=== PATIENT | female | born 1980 | race Two or more races ===

== ENCOUNTER → 2017-06-30 09:36 | Outpatient (CLI) | payer BC, SELFPAY ==
[2017-06-30 11:28] LABS: Glucose Challenge Gest 1H 50g 77 mg/dL (70-140)
[2017-06-30 11:30] LABS: Hematocrit 37.5 % (37-47); Hemoglobin 12.1 g/dl (12.0-15.0); Mean Corp Hgb Conc 32.3 g/gl (32-36); Mean Corpuscular Hgb 29.1 pg (27.0-32.0); Mean Corpuscular Volume 90.1 fL (81-99); Mean Platelet Vol. 11.4 fl (6.2-12.0); Platelet Count 225 K/mm3 (150-450); RBC Distribution Width CV 13.5 % (11.6-14.6); RBC Distribution Width SD 44.1 fl (35.1-43.9); Red Blood Count 4.16 M/mm3 (4.2-5.4); White Blood Count 10.4 K/mm3 (4.4-11.0)
[2017-06-30 11:35] LABS: Scan Indicated on CBC? Y/N NO
== END ==
PROVIDERS: Visit Provider Obstetrics & Gynecology
DX: Z34.82 Encounter for supervision of other normal pregnancy, second trimester (principal)
CPT/HCPCS: 36415; 82950; 85027

== ENCOUNTER → 2017-08-25 15:44 | Outpatient (CLI) | payer BC, SELFPAY ==
[2017-08-25 18:29] LABS: Group B Strep DNA By PCR Negative (Negative); Internal Control PASS; Probe Check PASS; Specimen Processing Control PASS
== END ==
PROVIDERS: Visit Provider Obstetrics & Gynecology
DX: Z36.85 Encounter for antenatal screening for Streptococcus B (principal)
CPT/HCPCS: 87081; 87653

== ENCOUNTER 2017-10-04 00:50 | Inpatient (IN) | payer BC, SELFPAY ==
[2017-10-04] VITALS (12 sets, daily range): BP systolic 116–168; BP diastolic 71–104; PULSE 75–94; RESP 16–20; TEMP 36.4–36.8; O2SAT 96–100; BMI 27.8
[2017-10-04] MEDS: Lactated Ringers 1,000 ML 50 ML IV (01:25)
[2017-10-04 01:47] LABS: Hematocrit 42.9 % (37-47); Mean Corpuscular Hgb 30.4 pg (27.0-32.0); Mean Corpuscular Volume 86.8 fL (81-99); Mean Platelet Vol. 12.2 fl (6.2-12.0); Platelet Count 205 K/mm3 (150-450); RBC Distribution Width CV 13.4 % (11.6-14.6); RBC Distribution Width SD 41.4 fl (35.1-43.9); Red Blood Count 4.94 M/mm3 (4.2-5.4); White Blood Count 17.3 K/mm3 (4.4-11.0)
[2017-10-04 01:51] LABS: Scan Indicated on CBC? Y/N NO
[2017-10-04 01:56] LABS: International Normalized Ratio 0.9; Prothrombin Time (Protime)PT. 11.9 SECONDS (11.7-14.9)
[2017-10-04 01:57] LABS: Partial Thromboplast Time 28.8 Seconds (24.1-36.2)
[2017-10-04 02:02] LABS: AST(SGOT) 29 U/L (15-37); Alanine Aminotransfer ALT/SGPT 40 U/L (13-56); Creatinine, Serum 0.74 mg/dL (0.55-1.02); EST Glomerular Filtration Rate 95 mL/min (>60); Est Glom Filt Rate - Afr Amer 115 mL/min (>60); Estimated Creatinine Clearance 84.72 ml/min; Uric Acid 3.9 mg/dL (2.6-6.0)
[2017-10-04] MEDS: Magnesium Sulfate 20 GM/500 ML BAG IV ×2 (02:44→13:06)
[2017-10-04 03:26] LABS: Protein, Urine (Random) 27.5 mg/dL (<11.9); Protein:Creat Ratio 367 mg/g CRE (0-200)
[2017-10-04] MEDS: Labetalol 100 MG Tablet PO ×2 (05:02→22:02)
[2017-10-04] MEDS: Oxytocin 30 units/NS 500 ml 30 UNITS/500 ML IV.SOLN IV (06:22)
[2017-10-04] MEDS: Acetaminophen 325 MG Tablet PO (07:06)
--- NOTE | 2017-10-04 08:37 | PCM.PN.OB ---
Subjective: USing nitrous oxide for pain. Feeling contractions strongly. Objective: BP 140/88 FHR tracing cat 1. - Physical Exam General: Alert, Oriented x3, Cooperative, No apparent distress Abdomen: Gravid, Appropriate for Gestational Age Extremities: No edema Skin: No rashes Neurological: Neuro grossly intact Psych/Mental Status: Normal Affect Comment: CE 7-8 90% -2 AROM performed with clear fluid noted Vital Signs Temp Pulse Resp BP Pulse Ox 98.3 F 82 18 168/93 H 99 10/04/17 03:51 10/04/17 03:51 10/04/17 03:51 10/04/17 03:51 10/04/17 03:51 Oxygen Delivery Method Room Air Weight: 152 lb 5.431 oz Body Mass Index (BMI) 27.8 Intake and Output for Last 24 Hours 10/02/17 10/03/17 10/04/17 23:59 23:59 23:59 Intake Total 879 / 879 Output Total 1600 / 1600 Balance -721 / -721 Laboratory Tests Past 24 Hrs 10/04/17 10/04/17 10/04/17 01:25 01:25 01:25 WBC 17.3 H RBC 4.94 Hgb 15.0 Hct 42.9 MCV 86.8 MCH 30.4 MCHC 35.0 RDW 13.4 RDW Differential 41.4 Plt Count 205 MPV 12.2 H PT 11.9 INR 0.9 APTT 28.8 Creatinine Estim Creat Clear Calc Est GFR (MDRD) Af Amer Est GFR (MDRD) Non-Af Uric Acid AST ALT U Random Total Protein Urine Creatinine Protein/Creatinin Ratio Blood Type A POSITIVE Antibody Screen NEGATIVE 10/04/17 10/04/17 01:25 03:00 WBC RBC Hgb Hct MCV MCH MCHC RDW RDW Differential Plt Count MPV PT INR APTT Creatinine 0.74 Estim Creat Clear Calc 84.72 Est GFR (MDRD) Af Amer 115 Est GFR (MDRD) Non-Af 95 Uric Acid 3.9 AST 29 ALT 40 U Random Total Protein 27.5 H Urine Creatinine 74.90 Protein/Creatinin Ratio 367 H Blood Type Antibody Screen Medical Necessity - Tobacco Use Smoking Status: Never smoker Assessment/Plan Progressing in labor Continue magnesium sulfate prophylaxis. Labetalol if needed for BP.
[2017-10-04] MEDS: Oxytocin 30 units/NS 500 ml 30 UNITS/500 ML IV.SOLN 334 UNITS IV (11:24)
--- NOTE | 2017-10-04 11:46 | PCM.OB.VAG ---
Vaginal Delivery Maternal Presentation: Active Labor Presented in active labor with elevated BPs Amniotic Membrane Rupture Type: Artificial Rupture of Membrane time: 08 Amniotic Fluid Description: Clear Final ELIE: 09/26/17 Final ELIE Source: US <20 weeks Gestational age: 41 Weeks and 1 Days Date of Procedure: 10/04/17 Pre-Operative Diagnosis: labor with preeclampsia Post-Operative Diagnosis: same Surgery/ Procedure Performed: Spontaneous Vaginal Delivery Type of Anesthesia: None Description of Procedure: Presented in active labor at 6-7 cm. BPs elevated started on magnesium sulfate prophylaxis. Progressed to FD then pushed for about an hour to deliver a live female over a second degree midline episiotomy. Delayed cord clamping was employed. The placenta delivered intact with a centrally located 3VC. The uterus contracted well. The second degree laceration was repaired with 2-0 vicryl with local anesthetic given. Presentation: Vertex Placental Delivery Description: Spontaneous Placenta Disposition: [facility] Percentage of Placenta Abruption: 0 Cord Vessel Description: 3 Vessels Nuchal Cord Compression: Without compression Cord Entanglement: None Estimated Blood Loss: 200cc Infant A gender: Female (1 minute): 9 (5 minute): 9 Episiotomy Description: Midline, Perineal Extension/lac, Vaginal Extension/lac, 2nd degree Medications given after delivery: IV Pitocin Complications: None
--- NOTE | 2017-10-04 11:53 | DCINST_ITS ---
Discharge Diet: No Restrictions Discharge Activity: Return to Normal Activity, May Drive, May Shower Return to work on:: 12/04/17 May resume sexual activity in: 6 weeks Call your doctor if your incision/area has: Sudden Increased Bleeding, Increased Pain/ Swelling, Increased Redness, Foul Smelling Discharge Call your doctor if you observe: Fever of 101 or Higher, Inability to urinate, Inability to have a bowel movement, Using more than one pad per hour, Shortness of breath, Chest pain, Calf discomfort, Uncontrolled pain Cleanse incision/area with: Soap & Water Additional Instructions: If you experience any of the following, contact your healthcare provider. * Bleeding that soaks a pad every hour for 2 hours * Fever 100.4 or higher * Unrelieved incision or abdominal pain * Swelling, redness, discharge or bleeding from your incision or episiotomy site * Your incision begins to separate * Problems urinating (including inability to urinate or burning while urinating) . * Visual changes * Severe headache * Flu-like symptoms * Pain or redness in one of both of your breasts * Pain, warmth, tenderness or swelling in your legs, especially the calf area * Frequent nausea and vomiting * Symptoms of depression or anxiety If you experience any of the following, call 911 or go to the nearest Emergency Room. * Chest pain * Problems breathing * Seizure activity * Partial or complete paralysis of a body part, slurred speech, weakness or drooping of the face, or a sudden inability to walk or hold your balance Allergies/Adverse Reactions: Allergies amoxicillin Adverse Reaction (Verified 10/04/17 01:59) Vomiting Medications to take at Discharge Ibuprofen 600 mg PO 4X/DAY #30 tab 10/04/17 Vits [Prenatabs FA ] 1 tablet PO DAILY 10/04/17 The following prescriptions were given: Ibuprofen 600 mg PO 4X/DAY #30 tab Please Follow Up With: Iesha Vergara MD When: 6 weeks Primary Care Physician: Care Physician,No Primary [Primary Care Provider] - Test Results: Test results from this visit will be discussed in further detail at your follow- up appointment, if applicable. Proposed Discharge Date: 10/06/17
[2017-10-04] MEDS: Oxytocin 30 units/NS 500 ml 30 UNITS/500 ML IV.SOLN 167 UNITS IV (11:56)
[2017-10-04] MEDS: Ibuprofen 600 MG Tablet PO ×2 (12:07→18:08)
[2017-10-04] MEDS: Methylergonovine 0.2 MG/ML Ampul IM (12:29)
[2017-10-04] MEDS: Lactated Ringers 1,000 ML 15 ML IV (13:03)
[2017-10-04] MEDS: Ondansetron 4 MG/2 ML Vial IV (13:17)
[2017-10-04] MEDS: Acetaminophen 500 MG Tablet 1000 MG PO (14:58)
[2017-10-05] VITALS (14 sets, daily range): BP systolic 104–126; BP diastolic 57–80; PULSE 70–87; RESP 16–18; TEMP 35.7–36.8; O2SAT 96–100
[2017-10-05] MEDS: Ibuprofen 600 MG Tablet PO ×4 (00:03→22:15)
[2017-10-05] MEDS: Magnesium Sulfate 20 GM/500 ML BAG IV (00:04)
[2017-10-05 06:33] LABS: Hematocrit 36.7 % (37-47); Hemoglobin 12.3 g/dl (12.0-15.0); Mean Corp Hgb Conc 33.5 g/gl (32-36); Mean Corpuscular Hgb 29.8 pg (27.0-32.0); Mean Corpuscular Volume 88.9 fL (81-99); Mean Platelet Vol. 12.1 fl (6.2-12.0); Platelet Count 215 K/mm3 (150-450); RBC Distribution Width CV 13.5 % (11.6-14.6); RBC Distribution Width SD 43.1 fl (35.1-43.9); Red Blood Count 4.13 M/mm3 (4.2-5.4); White Blood Count 17.3 K/mm3 (4.4-11.0)
[2017-10-05 06:37] LABS: Scan Indicated on CBC? Y/N NO
[2017-10-05] MEDS: 0.9% Saline Lock 10 ML Syringe IV (09:20)
[2017-10-05] MEDS: Labetalol 100 MG Tablet PO ×2 (10:21→22:16)
[2017-10-06 02:43] VITALS: BP 116/69; PULSE 75; RESP 17; TEMP 36.3
[2017-10-06 08:00] VITALS: BP 131/62; PULSE 61; RESP 16; TEMP 36.6
[2017-10-06] MEDS: Ibuprofen 600 MG Tablet PO (08:03)
--- NOTE | 2017-10-06 08:31 | PCM.PN.OB ---
Subjective: No issues overnight. Denies headache, vision changes, shortness of breath, heavy lochia. She feels well. Objective: AVSS - Physical Exam General: Alert, Oriented x3, Cooperative, No apparent distress HEENT: Atraumatic Lungs: Clear to auscultation, Normal air movement Cardiovascular: Regular rate, Regular Rhythm, Normal S1, Normal S2, No murmurs Abdomen: Soft, Non Tender, Non-Distended, - - Fundus firm and nontender Extremities: No edema, No Calf Tenderness Neurological: Neuro grossly intact Psych/Mental Status: Normal Affect, Appropriate, Alert and oriented to time, place, person, mood and affect Vital Signs Temp Pulse Resp BP Pulse Ox 97.8 F 61 16 131/62 H 100 10/06/17 08:00 10/06/17 08:00 10/06/17 08:00 10/06/17 08:00 10/05/17 10:20 Oxygen Delivery Method Room Air Weight: 69.1 kg Body Mass Index (BMI) 27.8 Intake and Output for Last 24 Hours 10/04/17 10/05/17 10/06/17 23:59 23:59 23:59 Intake Total 2575 / 2575 1787 / 1787 Output Total 3800 / 3800 2412 / 2412 Balance -1225 / -1225 -625 / -625 Medical Necessity - Tobacco Use Smoking Status: Never smoker Assessment/Plan 36yo P1001 PPD#2 s/p doing well - s/p magnesium IV for elevated BPs -Rh positive, Rub imm -d/c home
--- NOTE | 2017-10-06 08:36 | DCINST_ITS ---
Discharge Diet: No Restrictions Discharge Activity: Return to Normal Activity, May Drive, May Shower Return to work on:: 12/04/17 May resume sexual activity in: 6 weeks Call your doctor if your incision/area has: Sudden Increased Bleeding, Increased Pain/ Swelling, Increased Redness, Foul Smelling Discharge Call your doctor if you observe: Fever of 101 or Higher, Inability to urinate, Inability to have a bowel movement, Using more than one pad per hour, Shortness of breath, Chest pain, Calf discomfort, Uncontrolled pain Cleanse incision/area with: Soap & Water Additional Instructions: If you experience any of the following, contact your healthcare provider. * Bleeding that soaks a pad every hour for 2 hours * Fever 100.4 or higher * Unrelieved incision or abdominal pain * Swelling, redness, discharge or bleeding from your incision or episiotomy site * Your incision begins to separate * Problems urinating (including inability to urinate or burning while urinating) . * Visual changes * Severe headache * Flu-like symptoms * Pain or redness in one of both of your breasts * Pain, warmth, tenderness or swelling in your legs, especially the calf area * Frequent nausea and vomiting * Symptoms of depression or anxiety If you experience any of the following, call 911 or go to the nearest Emergency Room. * Chest pain * Problems breathing * Seizure activity * Partial or complete paralysis of a body part, slurred speech, weakness or drooping of the face, or a sudden inability to walk or hold your balance Allergies/Adverse Reactions: Allergies amoxicillin Adverse Reaction (Verified 10/04/17 01:59) Vomiting Medications to take at Discharge Ibuprofen 600 mg PO 4X/DAY #30 tab 10/04/17 Vits [Prenatabs FA ] 1 tablet PO DAILY 10/04/17 Labetalol [Trandate (Beta Pat)] 100 mg PO BID #60 tab 10/06/17 The following prescriptions were given: Labetalol [Trandate (Beta Pat)] 100 mg PO BID #60 tab Ibuprofen 600 mg PO 4X/DAY #30 tab Please Follow Up With: Iesha Vergara MD When: 7-10 days Primary Care Physician: Care Physician,No Primary [Primary Care Provider] - Test Results: Test results from this visit will be discussed in further detail at your follow- up appointment, if applicable. Proposed Discharge Date: 10/06/17
[2017-10-06] MEDS: Labetalol 100 MG Tablet PO (10:33)
[2017-10-06 14:02] VITALS: BP 124/58; PULSE 73; RESP 16; TEMP 36.4
== END 2017-10-06 15:05 | disposition home or self-care (01) | DRG 775 ==
PROVIDERS: Obstetrics & Gynecology; Admitting Provider Obstetrics & Gynecology; Visit Provider Obstetrics & Gynecology
DX: O14.94 Unspecified pre-eclampsia, complicating childbirth (principal); O48.0 Post-term pregnancy; Z3A.41 41 weeks gestation of pregnancy; O69.81X0 Labor and delivery complicated by cord around neck, without compression, not applicable or unspecified; O70.1 Second degree perineal laceration during delivery; Z37.0 Single live birth
CPT/HCPCS: 59025; 59050; 82565; 82570; 84156; 84450; 84460; 84550; 85027; 85610; 85730; 86850; 86900; 99218; J7120; A4216; G0378; J2405

== ENCOUNTER 2018-02-15 05:47 | Day surgery (SDC) | payer BC, SELFPAY ==
[2018-02-08 16:52] LABS: Hematocrit 42.3 % (37-47); Hemoglobin 13.7 g/dl (12.0-15.0); Mean Corp Hgb Conc 32.4 g/gl (32-36); Mean Corpuscular Hgb 28.4 pg (27.0-32.0); Mean Corpuscular Volume 87.6 fL (81-99); Mean Platelet Vol. 11.6 fl (6.2-12.0); Platelet Count 265 K/mm3 (150-450); RBC Distribution Width CV 13.3 % (11.6-14.6); RBC Distribution Width SD 41.9 fl (35.1-43.9); Red Blood Count 4.83 M/mm3 (4.2-5.4); Scan Indicated on CBC? Y/N NO; White Blood Count 6.7 K/mm3 (4.4-11.0)
[2018-02-08 16:54] LABS: Prothrombin Time (Protime)PT. 12.7 SECONDS (11.7-14.9)
[2018-02-08 16:55] LABS: Partial Thromboplast Time 35.4 Seconds (24.1-36.2)
[2018-02-15 06:09] LABS: Internal QC Validated? YES +Cl - CLEAR BKGD; Pregnancy, Urine Negative Negative
[2018-02-15 06:11] VITALS: BP 133/75; PULSE 59; RESP 16; TEMP 36.7; O2SAT 97; BMI 23.4
--- NOTE | 2018-02-15 07:05 | PCM.HPOB.BLA ---
- Problem List (1) Sterilization Status: Acute History and Physical Date of Admission: 02/15/18 Date: 02/08/2018 Name: SALLY GUZMÁN Age: 37 Date of : 1980 HISTORY OF PRESENT ILLNESS: On 02/08/2018, Sally Guzmán, a 37 year old female 1 0 0 0 1, presented for: -- Pre-Op -- Sally is here today of her pre op appointment. Patient is scheduled for bilateral salpingectomy 02/15/2018. Patient states that she has already received pre op phone call from [facility]. Patient denies any questions or concerns at this itme. Consents reviewed with patient and signed. jlb as above. m ALLERGIES: Amoxicillin, Intolerance-unknown MEDICATIONS HISTORY: Patient is also takin. Vitamin tablet, one capsule daily REVIEW OF SYSTEMS: GENERAL - Denies fever, or chills SKIN - Denies skin changes EYES - wears eye glasses and wears contact lenses EARS - Denies difficulty hearing NOSE - Denies nasal congestion or bleeding MOUTH - Denies sore throat or difficulty swallowing NECK - Denies pain or swelling RESPIRATORY - Denies shortness of breath or wheezing CARDIOVASCULAR - Denies palpitations or chest pain GASTROINTESTINAL - Denies nausea, vomiting, diarrhea, constipation GENITOURINARY - Denies dysuria, frequency of urination, incontinence of urine MUSCULOSKELETAL - Denies joint or muscle pain NEUROLOGICAL - Denies localized numbness or weakness PSYCHIATRIC - Denies depression or anxiety ENDOCRINE - Denies heat or cold intolerance, weight loss or gain HEMATO-IMMUNOLOGIC - Denies excesive bleeding with cuts PAST HISTORY: Breast/Ovarian/Colon Cancers - Maternal Grandfather had Colon Cancer Infections - Chicken pox Illnesses - none Accidents - None History of Abnormal PAPS - Denies Hospitalizations - None last pap 2014; SURGICAL HISTORY: 1. none MENSTRUAL HISTORY: LMP Known?- DefiniteAmount/Duration - 4-5 days, Regularity - Regular, Frequency - monthly days, LMP - 02/05/18, Age Onset Menarche - 14 PAST PREGNANCIES: Total Pregnancies - 1; Full Term Pregnancies - 1; Premature - 0; Abortions, Induced - 0; Abortions, Spontaneous - 0; Ectopics - 0; Multiple Births - 0; Living Children - 1 FAMILY HISTORY: MaternalGrandparent - Type 1 Diabetes; MaternalGrandparent - Heart disorder; PaternalGrandparent - FH: Cancer of colon; PaternalGrandparent - Neoplasm of lung; SOCIAL HISTORY: Alcohol Use - RARELY not while Smoking - Never Diet - balanced Diet Lifestyle - Exercise - active Seat Belt Use - always Employer - [employer] Job Description - window systems administrator Illicit Drug Use - denies use of street drugs Sexual Activity - Residence - owns a home Place of - [place]. [place] Hours Worked - FT Spouse-Sig Other Name - Nikko Spouse-Sig Other Occupation - Unloading Checker-Source[employer] maintenance- lee Spouse-Sig Other Phone No - [phone] Children Name(s) - Sharon ('18) Control - Tubal PHYSICAL EXAMINATION BP- 118/72 Sitting, Right arm, regular cuff Temp- 98.0 Taken Orally Weight- 132.00 lbs Height- 62.00 inch BMI:24.19 CONSTITUTIONAL - NAD, well nourished, and well developed SKIN - No rash, lesions, or ulcers HEENT - Normocephalic, PERRLA, EOMI LUNGS - CTA x2 without wheezes, crackles or rales CARDIAC - Regular rate and rhythm without rubs, murmurs, or gallops ABDOMEN - Without hepatosplenomegaly, distention, masses, rebound, or guarding; normal bowel sounds; no hernias EXTREMITIES - No edema or calf tenderness NEUROLOGICAL - normal gait, normal balance, normal motor PSYCHIATRIC - A and O to time, place, person, mood and affect ASSESSMENT: PLAN BY DIAGNOSIS: 1. Encounter For Sterilization Plan for bilateral salpingectomy - discussed alternative contraceptive methods including reversible and irreversible methods, male sterilization. Pt desires to proceed. Reviewed how procedure performed, surgical risks, benefits, indications. Discussed preoperative preparation and postoperative course Consents signed, blood transfusion acceptable CBC, coags pending NPO @ MN prior to procedure
--- NOTE | 2018-02-15 07:15 | FALS_PTH ---
PATIENT: ANDRAE GUZMÁN [place] [facility] [place][id number] AGE/SX: 37/F ROOM: RE02/15/[address]: Dr. Iesha Estrada MD : 1980 BED: DIS: 02/15/2018 SPEC #: [id number] RECD: 02/15/18 10:40 STATUS: NAVI REQ #: [id number] AWNDA: 02/15/18 07:[address]: Iesha Garcia DEPT: SURGICAL PATHOLOGY RECD BY: Ralf Austin ENTERED: 02/15/18 11:39 SP TYPE: FALL TUBES OTHR DR: Ailyn Primary Care Phys Tissues: Fallopian tube Procedures: Surgery Specimen Level II HEADER OPERATION: Laparoscopic salpingectomy PRE-OP DIAGNOSIS: Desired sterilization TISSUE SUBMITTED: Bilateral fallopian tubes, suture on left tube MICROSCOPIC DIAGNOSIS Right and left fallopian tubes, salpingectomies: Two complete segments of fallopian tubes with no significant pathologic change. AM:aries 02/16/18 MICROSCOPIC DESCRIPTION Slides are reviewed. GROSS DESCRIPTION Received is one container labeled with the patient's name and designated bilateral fallopian tubes, suture on left tube. The specimen consists of bilateral fallopian tubes including fimbrial ends with left tube identified by a suture. The right tube measures 7 cm in length and 0.6 cm in diameter and the left tube measures 6 cm in length and 0.6 cm in diameter. The fimbrial end is identified. Sections reveal unremarkable cut surfaces. Sales Developer sections are submitted in two cassettes as follows: 1 - right fallopian tube, 2 - left fallopian tube. / ETHAN:aries 02/15/18 TC:5 CPT: 15278
[2018-02-15] MEDS: Bupivacaine Mpf 0.5% 30 ML VIAL (08:05)
--- NOTE | 2018-02-15 08:22 | OP.PCM_ITS ---
Problem List (1) Sterilization Status: Acute Report of Operation Date of Procedure: 02/15/18 Pre-Operative Diagnosis: Sterilization request Post-Operative Diagnosis: Sterilization request Surgery/Procedure Performed:: Laparoscopic bilateral salpingectomy Description of Surgical Findings:: Possible endometriotic lesion in the right ovarian fossa and left uterosacral ligament Normal tubes, ovaries and uterus house cleaner supervisor: Elmira Linares Type of Anesthesia:: General, Local Anesthesiologist: Gerald Anand Specimen's removed: Left and right tubes, left tube tagged Drains: Urine 200 mL Estimated Blood Loss (mL): 5 Fluids Replaced: 1000 mL Description of Procedure: Indications: Patient is a 37-year-old 1 para 1001 desiring permanent sterilization. She was counseled regarding her contraceptive options and declined reversible contraceptives. Following counseling she opted to proceed with laparoscopic bilateral salpingectomy. Risks, benefits, indications and alternatives were reviewed. Consents were signed and informed consent obtained. Procedure: The patient was taken to the operating room and signed and was performed. She is placed in a dorsal supine position and induced under general anesthesia and endotracheal tube placed. She was then repositioned to dorsal lithotomy and her arms were tucked at her sides. The perineum and abdomen were prepped and draped in sterile fashion. Straight catheterization of the bladder performed. Patient was placed into high lithotomy and speculum placed vaginally. The anterior cervical lip was grasped using a single-tooth tenaculum Cannula was placed for uterine manipulation and secured. The patient was then placed into low lithotomy attention turned to the abdomen. An infraumbilical incision was made using a scalpel and Veress needle placed with abdominal insufflation. With successful hanging drop test and no aspirate. The Veress needle was removed and a 5 mm port was placed under laparoscopic guidance confirming entry into the abdominal cavity. The patient was placed into Trendelenburg and and incisions were made suprapubically as well as in the right lower quadrant under transillumination and 5 mm ports were also placed at the sites. The abdomen pelvis were inspected with some evidence of possible endometriosis in the pelvis insistent with stage I. The appendix, uterus and adnexa were normal in appearance. Attention was turned to the left adnexa and the distal tube was grasped. Salpingectomy was performed using the Enseal device to coagulate and transect the tube from the mesosalpinx to the level of the uterine cornua. The tube was removed by a port. In similar fashion right salpingectomy was also performed. There was excellent hemostasis. The procedure was complete. The patient was removed from Trendelenburg. The tenaculum immediate manipulator were removed from the vagina. The patient was then placed into dorsal supine position, awakened, extubated and transferred to the recovery room without complication. Sponge counts were correct x2. - Complications None - Admit VTE Documentation VTE Present on Admission: No VTE Mechan Device Prophylaxis: SCD's VTE Pharm Prophylaxis ordered?: No
--- NOTE | 2018-02-15 08:24 | DCINST_ITS ---
- Discharge Diagnoses Current Active Problems: Current Active and Chronic Problems Sterilization (Acute) Reason(s) for Visit for Discharge Instructions: Laparoscopy You will use the following diet at home:: No restrictions Your food should be the consistency of: Regular Discharge Activity: Return to Normal Activity, May not drive while taking narcotic pain medications., May Shower, - - No driving for at least 24-48 hours May resume sexual activity in: 4 weeks Lifting Restrictions: 10 lb Call your doctor if your incision/area has: Continuous Slow Oozing, Sudden In creased Bleeding, Increased Pain/ Swelling, Increased Redness Call your doctor if you observe: Fever of 101 or Higher, Inability to urinate, Inability to have a bowel movement, Using more than one pad per hour, Shortness of breath, Chest pain, Calf discomfort, Uncontrolled pain Suture Line Care: Avoid Pulling/Pushing Remove Dressing in (days):: 1 Cleanse incision/area with: Soap & Water Allergies/Adverse Reactions: Allergies amoxicillin Adverse Reaction (Verified 02/08/18 10:40) Vomiting Medications to take at Discharge Pnv No.121/Iron/Folic Acid [ Multivitamin Tablet] 1 each PO DAILY 02/08/18 Ibuprofen [Motrin] 600 mg PO Q6H PRN PRN #30 tablet 02/15/18 Oxycodone [Oxyir] 5 mg PO Q6H PRN PRN 7 Days #12 tablet 02/15/18 The following prescriptions were given: Ibuprofen [Motrin] 600 mg PO Q6H PRN PRN #30 tablet PRN Reason: Pain Oxycodone [Oxyir] 5 mg PO Q6H PRN PRN 7 Days #12 tablet PRN Reason: Pain Primary Care Physician: Care Physician,No Primary [Primary Care Provider] - Test Results: Test results from this visit will be discussed in further detail at your follow- up appointment, if applicable. Please Follow Up With: Iesha Vergara MD When: 2-4 weeks
[2018-02-15 08:25] VITALS: BP 104/49; BP 133/75; PULSE 71; RESP 16; TEMP 36.5; O2SAT 100
[2018-02-15 08:30] VITALS: BP 107/52; BP 133/75; PULSE 71; RESP 16; O2SAT 99
[2018-02-15 08:45] VITALS: BP 112/78; BP 133/75; PULSE 59; RESP 16; TEMP 36.3; O2SAT 100
[2018-02-15 11:26] VITALS: BP 116/63; BP 133/75; PULSE 61; RESP 16; TEMP 36.4; O2SAT 100
--- OUTSIDE RECORDS SUMMARY | 2018-04-03 00:13 | XMS RPT_ITS ---
:1980 Author Organization OHIP Care Team Providers Name Role Phone KINGA MERRILL Attending Unavailable RYLEE QUIJANO T Referring Unavailable NO PRIMARY CAREMD Primary Care Unavailable KINGA MERRILL Attending Unavailable ADALBERTO SERRANO SUMMER T Referring Unavailable NO PRIMARY CAREMD Primary Care Unavailable Rylee Vergara Attending Unavailable Rylee Vergara Attending Unavailable Primay Care Physicia, No Primary Care Unavailable Silvano Mccurdy Admitting Unavailable Silvano Mccurdy Attending Unavailable Silvano Mccurdy Referring Unavailable Ursula Summer Attending Unavailable Azaelon, Summer Referring Unavailable Primay Care Physicia, No Primary Care Unavailable PROBLEMS PROBLEMS DATE TYPE CONDITION / CODE ATTENDING STATUS SOURCE 02/16/2018 Unknown Z30.2 - Encounter Cristian Vergara for sterilization / [facility] Z30.2(ICD-10) Hospital Repository 11/22/2017 Unknown Z34.03 - Encounter Silvano Mccurdy Active Minnie for supervision of [facility] normal first Hospital , third Repository trimester / Z34.03(ICD-10) 08/25/2017 Unknown Z36.85 - Encounter Cristian Vergara for [facility] screening for Hospital Streptococcus B / Repository Z36.85(ICD-10) 06/30/2017 Unknown Z34.82 - Encounter Cristian Vergara for supervision of [facility] other normal Hospital , second Repository trimester / Z34.82(ICD-10) PROCEDURES PROCEDURES No Procedure Records FoundRESULTS RESULTS DISCHARGE INSTRUCTION Observed: 02/15/2018 Status: F Source: [place] 8:24 AM [facility] REPOSITORY [facility] Medical Records Department [address] [place] [address] Instructions for Home/Discharge Instructions 02/15/18 0823 MR#: [id number] Acct: [id number] Name: ANDRAE GUZMÁN Rep #: [id number] : 1980 37 From: Rylee Serrano MD PCP: Care Physician, No Primary Status: REG [facility] - Discharge Diagnoses Current Active Problems: Current Active and Chronic Problems Sterilization (Acute) Reason(s) for Visit for Discharge Instructions: Laparoscopy You will use the following diet at home:: No restrictions Your food should be the consistency of: Regular Discharge Activity: Return to Normal Activity, May not drive while taking narcotic pain medications., May Shower, - - No driving for at least 24-48 hours May resume sexual activity in: 4 weeks Lifting Restrictions: 10 lb Call your doctor if your incision/area has: Continuous Slow Oozing, Sudden Increased Bleeding, Increased Pain/ Swelling, Increased Redness Call your doctor if you observe: Fever of 101 or Higher, Inability to urinate, Inability to have a bowel movement, Using more than one pad per hour, Shortness of breath, Chest pain, Calf discomfort, Uncontrolled pain Suture Line Care: Avoid Pulling/Pushing Remove Dressing in (days):: 1 Cleanse incision/area with: Soap AND Water Allergies/Adverse Reactions: Allergies amoxicillin Adverse Reaction (Verified 02/08/18 10:40) Vomiting Medications to take at Discharge Pnv No.121/Iron/Folic Acid [ Multivitamin Tablet] 1 each PO DAILY 02/08/18 Ibuprofen [Motrin] 600 mg PO Q6H PRN PRN #30 tablet 02/15/18 Oxycodone [Oxyir] 5 mg PO Q6H PRN PRN 7 Days #12 tablet 02/15/18 The following prescriptions were given: Ibuprofen [Motrin] 600 mg PO Q6H PRN PRN #30 tablet PRN Reason: Pain Oxycodone [Oxyir] 5 mg PO Q6H PRN PRN 7 Days #12 tablet PRN Reason: Pain Primary Care Physician: Care Physician,No Primary [Primary Care Provider] - Test Results: Test results from this visit will be discussed in further detail at your follow-up appointment, if applicable. Please Follow Up With: Rylee Vergara MD When: 2-4 weeks 02/15/18823 <Electronically signed by Rylee Vergara MD> Date Rylee Vergara MD CC: No Primary Care Physician OPERATIVE REPORT Observed: 02/15/2018 Status: F Source: [place] 8:23 AM [facility] REPOSITORY [facility] Medical Records Department [address] [place] [address] Operative Report 02/15/18 0814 MR#: [id number] Acct: [id number] Name: ANDRAE GUZMÁN Rep #: [id number] : 1980 37 From: Rylee Serrano MD PCP: Care Physician, No Primary Status: REG [facility] Y Location: [place] [address] Problem List (1) Sterilization Status: Acute Report of Operation Date of Procedure: 02/15/18 Pre-Operative Diagnosis: Sterilization request Post-Operative Diagnosis: Sterilization request Surgery/Procedure Performed:: Laparoscopic bilateral salpingectomy Description of Surgical Findings:: Possible endometriotic lesion in the right ovarian fossa and left uterosacral ligament Normal tubes, ovaries and uterus mononitrotoluene operator: Elmira Linares Type of Anesthesia:: General, Local Anesthesiologist: Gerald Anand Specimen's removed: Left and right tubes, left tube tagged Drains: Urine 200 mL Estimated Blood Loss (mL): 5 Fluids Replaced: 1000 mL Description of Procedure: Indications: Patient is a 37-year-old 1 para 1001 desiring permanent sterilization. She was counseled regarding her contraceptive options and declined reversible contraceptives. Following counseling she opted to proceed with laparoscopic bilateral salpingectomy. Risks, benefits, indications and alternatives were reviewed. Consents were signed and informed consent obtained. Procedure: The patient was taken to the operating room and signed and was performed. She is placed in a dorsal supine position and induced under general anesthesia and endotracheal tube placed. She was then repositioned to dorsal lithotomy and her arms were tucked at her sides. The perineum and abdomen were prepped and draped in sterile fashion. Straight catheterization of the bladder performed. Patient was placed into high lithotomy and speculum placed vaginally. The anterior cervical lip was grasped using a single-tooth tenaculum Cannula was placed for uterine manipulation and secured. The patient was then placed into low lithotomy attention turned to the abdomen. An infraumbilical incision was made using a scalpel and Veress needle placed with abdominal insufflation. With successful hanging drop test and no aspirate. The Veress needle was removed and a 5 mm port was placed under laparoscopic guidance confirming entry into the abdominal cavity. The patient was placed into Trendelenburg and and incisions were made suprapubically as well as in the right lower quadrant under transillumination and 5 mm ports were also placed at the sites. The abdomen pelvis were inspected with some evidence of possible endometriosis in the pelvis insistent with stage I. The appendix, uterus and adnexa were normal in appearance. Attention was turned to the left adnexa and the distal tube was grasped. Salpingectomy was performed using the Enseal device to coagulate and transect the tube from the mesosalpinx to the level of the uterine cornua. The tube was removed by a port. In similar fashion right salpingectomy was also performed. There was excellent hemostasis. The procedure was complete. The patient was removed from Trendelenburg. The tenaculum immediate manipulator were removed from the vagina. The patient was then placed into dorsal supine position, awakened, extubated and transferred to the recovery room without complication. Sponge counts were correct x2. - Complications None - Admit VTE Documentation VTE Present on Admission: No VTE Mechan Device Prophylaxis: SCD's VTE Pharm Prophylaxis ordered?: No 02/15/18 0823 <Electronically signed by Rylee Vergara MD> Date Rylee Vergara MD CC: No Primary Care Physician; Rylee Vergara MD Signed FALLOPIAN TUBES/STERILIZATION Observed: 02/15/2018 Status: F Source: [place] 7:15 AM [facility] REPOSITORY Patient: ANDRAE GUZMÁN : 1980 (37/F) Acct Num: [id number] Phys: Ursula ROSENTHAL,Summer Unit Num: [id number] Loc: [facility] Specimen: [id number] Received: 02/15/18 1040 Spec Type: FALL TUBES TISSUES 1 TISSUES: Fallopian tube GROSS DESCRIPTION Received is one container labeled with the patient's name and designated bilateral fallopian tubes, suture on left tube. The specimen consists of bilateral fallopian tubes including fimbrial ends with left tube identified by a suture. The right tube measures 7 cm in length and 0.6 cm in diameter and the left tube measures 6 cm in length and 0.6 cm in diameter. The fimbrial end is identified. Sections reveal unremarkable cut surfaces. Property Developer sections are submitted in two cassettes as follows: 1 - right fallopian tube, 2 - left fallopian tube. / SJ:aries 02/15/18 TC:5 CPT: 07126 HEADER OPERATION: Laparoscopic salpingectomy PRE-OP DIAGNOSIS: Desired sterilization TISSUE SUBMITTED: Bilateral fallopian tubes, suture on left tube MICROSCOPIC DESCRIPTION Slides are reviewed. MICROSCOPIC DIAGNOSIS Right and left fallopian tubes, salpingectomies: Two complete segments of fallopian tubes with no significant pathologic change. AM:aries 02/16/18 Signed Jean-Paul Carias, 02/16/18 <signature on file> Performed By: #### PFALS #### [facility] [address] [place], [address] HISTORY AND PHYSICAL Observed: 02/15/2018 Status: F Source: [place] EXAM 7:06 AM [facility] REPOSITORY [facility] Medical Records Department [address] [place] [address] History and Physical 02/15/18 0705 MR#: [id number] Acct: [id number] Name: ANDRAE GUZMÁN Rep #: [id number] : 1980 37 From: Rylee Serrano MD PCP: Care Physician, No Primary Status: REG [facility] Y Location: [place] [address] - Problem List (1) Sterilization Status: Acute History and Physical Date of Admission: 02/15/18 Date: 02/08/2018 Name: ANDRAE GUZMÁN Age: 37 Date of : 1980 HISTORY OF PRESENT ILLNESS: On 02/08/2018, Andrae Guzmán, a 37 year old female 1 0 0 0 1, presented for: -- Pre-Op -- Andrae is here today of her pre op appointment. Patient is scheduled for bilateral salpingectomy 02/15/2018. Patient states that she has already received pre op phone call from [facility]. Patient denies any questions or concerns at this itme. Consents reviewed with patient and signed. jlb as above. m ALLERGIES: Amoxicillin, Intolerance-unknown MEDICATIONS HISTORY: Patient is also takin. Vitamin tablet, one capsule daily REVIEW OF SYSTEMS: GENERAL - Denies fever, or chills SKIN - Denies skin changes EYES - wears eye glasses and wears contact lenses EARS - Denies difficulty hearing NOSE - Denies nasal congestion or bleeding MOUTH - Denies sore throat or difficulty swallowing NECK - Denies pain or swelling RESPIRATORY - Denies shortness of breath or wheezing CARDIOVASCULAR - Denies palpitations or chest pain GASTROINTESTINAL - Denies nausea, vomiting, diarrhea, constipation GENITOURINARY - Denies dysuria, frequency of urination, incontinence of urine MUSCULOSKELETAL - Denies joint or muscle pain NEUROLOGICAL - Denies localized numbness or weakness PSYCHIATRIC - Denies depression or anxiety ENDOCRINE - Denies heat or cold intolerance, weight loss or gain HEMATO-IMMUNOLOGIC - Denies excesive bleeding with cuts PAST HISTORY: Breast/Ovarian/Colon Cancers - Maternal Grandfather had Colon Cancer Infections - Chicken pox Illnesses - none Accidents - None History of Abnormal PAPS - Denies Hospitalizations - None last pap 2014; SURGICAL HISTORY: 1. none MENSTRUAL HISTORY: LMP Known?- DefiniteAmount/Duration - 4- 5 days, Regularity - Regular, Frequency - monthly days, LMP - 02/05/18, Age Onset Menarche - 14 PAST PREGNANCIES: Total Pregnancies - 1; Full Term Pregnancies - 1; Premature - 0; Abortions, Induced - 0; Abortions, Spontaneous - 0; Ectopics - 0; Multiple Births - 0; Living Children - 1 FAMILY HISTORY: MaternalGrandparent - Type 1 Diabetes; MaternalGrandparent - Heart disorder; PaternalGrandparent - FH: Cancer of colon; PaternalGrandparent - Neoplasm of lung; SOCIAL HISTORY: Alcohol Use - RARELY not while Smoking - Never Diet - balanced Diet Lifestyle - Exercise - active Seat Belt Use - always Employer - [employer] Job Description - sharepoint admin Illicit Drug Use - denies use of street drugs Sexual Activity - Residence - owns a home Place of - [place]. [place] Hours Worked - FT Spouse-Sig Other Name - Nikko Spouse-Sig Other Occupation - Chief Bank Examiner-Town[employer] maintenance- lee Spouse-Sig Other Phone No - [phone] Children Name(s) - Sharon ('18) Control - Tubal PHYSICAL EXAMINATION BP- 118/72 Sitting, Right arm, regular cuff Temp- 98.0 Taken Orally Weight- 132.00 lbs Height- 62.00 inch BMI:24.19 CONSTITUTIONAL - NAD, well nourished, and well developed SKIN - No rash, lesions, or ulcers HEENT - Normocephalic, PERRLA, EOMI LUNGS - CTA x2 without wheezes, crackles or rales CARDIAC - Regular rate and rhythm without rubs, murmurs, or gallops ABDOMEN - Without hepatosplenomegaly, distention, masses, rebound, or guarding; normal bowel sounds; no hernias EXTREMITIES - No edema or calf tenderness NEUROLOGICAL - normal gait, normal balance, normal motor PSYCHIATRIC - A and O to time, place, person, mood and affect ASSESSMENT: PLAN BY DIAGNOSIS: 1. Encounter For Sterilization Plan for bilateral salpingectomy - discussed alternative contraceptive methods including reversible and irreversible methods, male sterilization. Pt desires to proceed. Reviewed how procedure performed, surgical risks, benefits, indications. Discussed preoperative preparation and postoperative course Consents signed, blood transfusion acceptable CBC, coags pending NPO @ MN prior to procedure 02/15/18 0706 <Electronically signed by Rylee Vergara MD> Date Rylee Vergara MD Cosigner Signature: Date (if applicable) CC: No Primary Care Physician; Rylee Vergara MD Signed ,URINE Collected: 02/15/2018 Status: F Source: [place] 5:58 AM [facility] REPOSITORY Order Comment: Reason for Laboratory Test PRE OP TYPE CODE TESTS RESULT OUT OF REFERENCE UNITS RANGE LAB L400.8000 Negative Normal HCGUQUAL Negative Result Comment: Very dilute urine specimens, as indicated by a low specific gravity, may not contain business center representative levels of hCG. If is still suspected, a first morning urine specimen should be collected 48 hours later and tested. Performed By: #### L400.7600 #### [facility] [address] [place], [place], [address] CBC-COMPLETE BLOOD CNT Collected: 02/08/2018 Status: F Source: [place] NO DIFF 4:12 PM [facility] REPOSITORY TYPE CODE TESTS RESULT OUT OF RANGE REFERENCE UNITS LAB L100.1000 4.4-11.0 K/mm3 Normal WBC 6.7 LAB L100.1200 4.2-5.4 M/mm3 Normal RBC 4.83 LAB L100.1300 12.0-15.0 g/dl Normal HGB 13.7 LAB L100.1400 37-47 % Normal HCT 42.3 LAB L100.1500 81-99 fL Normal MCV 87.6 LAB L100.1600 27.0-32.0 pg Normal MCH 28.4 LAB L100.1700 32-36 g/gl Normal MCHC 32.4 LAB L100.1810 11.6-14.6 % Normal RDW CV 13.3 LAB L100.1820 35.1-43.9 fl Normal RDW SD 41.9 LAB L100.1900 150-450 K/mm3 Normal PLT 265 LAB L100.2000 6.2-12.0 fl Normal MPV 11.6 Performed By: #### L100.0500 #### [facility] [address] [place], [address] PROTHROMBIN TIME W/INR Collected: 02/08/2018 Status: F Source: [place] 4:12 PM [facility] REPOSITORY TYPE CODE TESTS RESULT OUT OF RANGE REFERENCE UNITS LAB L300.4150 11.7-14.9 SECONDS Normal PROTIME 12.7 LAB L300.4200 Normal INR 1.0 Performed By: #### L300.3900, L300.4310 #### [facility] [address] [place], [place], [address] PARTIAL THROMBOPLAST Collected: 02/08/2018 Status: F Source: [place] TIME 4:12 PM [facility] REPOSITORY TYPE CODE TESTS RESULT OUT OF RANGE REFERENCE UNITS LAB L300.4310 24.1-36.2 Seconds Normal PTT 35.4 Performed By: #### L300.3900, L300.4310 #### [facility] [address] [place], [address] TYPE AND SCREEN Collected: 02/08/2018 Status: F Source: [place] 4:12 PM [facility] REPOSITORY Order Comment: Surgery Date: 02/15/18 Hx of Preganancy in last 3 Months No Ever experience any problems with transfusion(s)? N Hx of Transfusion in last 3 Months N Reason for Type AND Screen/Red Cells: SURGERY SURGICAL PROCEDURE: 84250 TYPE CODE TESTS RESULT OUT OF RANGE REFERENCE UNITS LAB B10.0800 A Normal BLOOD TYPE GEL POSITIVE LAB B100.4000 Normal Antibody NEGATIVE Screen Performed By: #### B101.7475 #### [facility] [address] [place], [address] DISCHARGE INSTRUCTION Observed: 10/06/2017 Status: F Source: [place] 8:36 AM [facility] REPOSITORY [facility] Medical Records Department [address] [place] [address] Instructions for Home/Discharge Instructions 10/06/17 0834 MR#: [id number] Acct: [id number] Name: ANDRAE GUZMÁN Rep #: [id number] : 1980 36 From: Rylee Serrano MD PCP: Care Physician, No Primary Status: ADM IN Discharge Diet: No Restrictions Discharge Activity: Return to Normal Activity, May Drive, May Shower Return to work on:: 12/04/17 May resume sexual activity in: 6 weeks Call your doctor if your incision/area has: Sudden Increased Bleeding, Increased Pain/ Swelling, Increased Redness, Foul Smelling Discharge Call your doctor if you observe: Fever of 101 or Higher, Inability to urinate, Inability to have a bowel movement, Using more than one pad per hour, Shortness of breath, Chest pain, Calf discomfort, Uncontrolled pain Cleanse incision/area with: Soap AND Water Additional Instructions: If you experience any of the following, contact your healthcare provider. * Bleeding that soaks a pad every hour for 2 hours * Fever 100.4 or higher * Unrelieved incision or abdominal pain * Swelling, redness, discharge or bleeding from your incision or episiotomy site * Your incision begins to separate * Problems urinating (including inability to urinate or burning while urinating). * Visual changes * Severe headache * Flu-like symptoms * Pain or redness in one of both of your breasts * Pain, warmth, tenderness or swelling in your legs, especially the calf area * Frequent nausea and vomiting * Symptoms of depression or anxiety If you experience any of the following, call 911 or go to the nearest Emergency Room. * Chest pain * Problems breathing * Seizure activity * Partial or complete paralysis of a body part, slurred speech, weakness or drooping of the face, or a sudden inability to walk or hold your balance Allergies/Adverse Reactions: Allergies amoxicillin Adverse Reaction (Verified 10/04/17 01:59) Vomiting Medications to take at Discharge Ibuprofen 600 mg PO 4X/DAY #30 tab 10/04/17 Vits [Prenatabs FA ] 1 tablet PO DAILY 10/04/17 Labetalol [Trandate (Beta Pat)] 100 mg PO BID #60 tab 10/06/17 The following prescriptions were given: Labetalol [Trandate (Beta Pat)] 100 mg PO BID #60 tab Ibuprofen 600 mg PO 4X/DAY #30 tab Please Follow Up With: Rylee Vergara MD When: 7-10 days Primary Care Physician: Care Physician,No Primary [Primary Care Provider] - Test Results: Test results from this visit will be discussed in further detail at your follow-up appointment, if applicable. Proposed Discharge Date: 10/06/17 10/06/17 0836 <Electronically signed by Rylee Vergara MD> Date Rylee Vergara MD CC: No Primary Care Physician DISCHARGE INSTRUCTION Observed: 10/06/2017 Status: F Source: [place] 8:35 AM [facility] REPOSITORY [facility] Medical Records Department [address] [place] [address] Instructions for Home/Discharge Instructions 10/04/17 1152 MR#: [id number] Acct: [id number] Name: ANDRAE GUZMÁN Rep #: [id number] : 1980 36 From: Silvano Mccurdy MD PCP: Care Physician, No Primary Status: ADM IN ADDENDUM by Rylee Vergara MD on 10/06/17 at 0834 Please schedule a visit to be seen in 7-10 days for blood pressure check with Dr. Adalberto Serrano. Date Rylee Vergara MD cc: No Primary Care Physician * Signed Discharge Diet: No Restrictions Discharge Activity: Return to Normal Activity, May Drive, May Shower Return to work on:: 12/04/17 May resume sexual activity in: 6 weeks Call your doctor if your incision/area has: Sudden Increased Bleeding, Increased Pain/ Swelling, Increased Redness, Foul Smelling Discharge Call your doctor if you observe: Fever of 101 or Higher, Inability to urinate, Inability to have a bowel movement, Using more than one pad per hour, Shortness of breath, Chest pain, Calf discomfort, Uncontrolled pain Cleanse incision/area with: Soap AND Water Additional Instructions: If you experience any of the following, contact your healthcare provider. * Bleeding that soaks a pad every hour for 2 hours * Fever 100.4 or higher * Unrelieved incision or abdominal pain * Swelling, redness, discharge or bleeding from your incision or episiotomy site * Your incision begins to separate * Problems urinating (including inability to urinate or burning while urinating). * Visual changes * Severe headache * Flu-like symptoms * Pain or redness in one of both of your breasts * Pain, warmth, tenderness or swelling in your legs, especially the calf area * Frequent nausea and vomiting * Symptoms of depression or anxiety If you experience any of the following, call 911 or go to the nearest Emergency Room. * Chest pain * Problems breathing * Seizure activity * Partial or complete paralysis of a body part, slurred speech, weakness or drooping of the face, or a sudden inability to walk or hold your balance Allergies/Adverse Reactions: Allergies amoxicillin Adverse Reaction (Verified 10/04/17 01:59) Vomiting Medications to take at Discharge Ibuprofen 600 mg PO 4X/DAY #30 tab 10/04/17 Vits [Prenatabs FA ] 1 tablet PO DAILY 10/04/17 The following prescriptions were given: Ibuprofen 600 mg PO 4X/DAY #30 tab Please Follow Up With: Rylee Vergara MD When: 6 weeks Primary Care Physician: Care Physician,No Primary [Primary Care Provider] - Test Results: Test results from this visit will be discussed in further detail at your follow-up appointment, if applicable. Proposed Discharge Date: 10/06/17 10/04/17 1153 <Electronically signed by Silvano Mccurdy MD> Date Silvano Mccurdy MD CC: No Primary Care Physician CBC-COMPLETE BLOOD CNT Collected: 10/05/2017 Status: F Source: [place] NO DIFF 6:15 AM [facility] REPOSITORY Order Comment: Reason for Laboratory Test Day #1 TYPE CODE TESTS RESULT OUT OF RANGE REFERENCE UNITS LAB L100.1000 4.4-11.0 K/mm3 High WBC 17.3 LAB L100.1200 4.2-5.4 M/mm3 Low RBC 4.13 LAB L100.1300 12.0-15.0 g/dl Normal HGB 12.3 LAB L100.1400 37-47 % Low HCT 36.7 LAB L100.1500 81-99 fL Normal MCV 88.9 LAB L100.1600 27.0-32.0 pg Normal MCH 29.8 LAB L100.1700 32-36 g/gl Normal MCHC 33.5 LAB L100.1810 11.6-14.6 % Normal RDW CV 13.5 LAB L100.1820 35.1-43.9 fl Normal RDW SD 43.1 LAB L100.1900 150-450 K/mm3 Normal PLT 215 LAB L100.2000 6.2-12.0 fl High MPV 12.1 Performed By: #### L100.0500 #### [facility] [address] [place], [address] OPERATIVE REPORT Observed: 10/04/2017 Status: F Source: [place] 11:50 AM [facility] REPOSITORY [facility] Medical Records Department [address] [place] [address] Operative Report 10/04/17 1146 MR#: [id number] Acct: [id number] Name: ANDRAE GUZMÁN Rep #: [id number] : 1980 36 From: Silvano Mccurdy MD PCP: Care Physician, No Primary Status: ADM IN Location: [place] [id number] Vaginal Delivery Maternal Presentation: Active Labor Presented in active labor with elevated BPs Amniotic Membrane Rupture Type: Artificial Rupture of Membrane time: 08 Amniotic Fluid Description: Clear Final ELIE: 09/26/17 Final ELIE Source: US <20 weeks Gestational age: 41 Weeks and 1 Days Date of Procedure: 10/04/17 Pre-Operative Diagnosis: labor with preeclampsia Post-Operative Diagnosis: same Surgery/ Procedure Performed: Spontaneous Vaginal Delivery Type of Anesthesia: None Description of Procedure: Presented in active labor at 6-7 cm. BPs elevated started on magnesium sulfate prophylaxis. Progressed to FD then pushed for about an hour to deliver a live female over a second degree midline episiotomy. Delayed cord clamping was employed. The placenta delivered intact with a centrally located 3VC. The uterus contracted well. The second degree laceration was repaired with 2-0 vicryl with local anesthetic given. Presentation: Vertex Placental Delivery Description: Spontaneous Placenta Disposition: [facility] Percentage of Placenta Abruption: 0 Cord Vessel Description: 3 Vessels Nuchal Cord Compression: Without compression Cord Entanglement: None Estimated Blood Loss: 200cc Infant A gender: Female (1 minute): 9 (5 minute): 9 Episiotomy Description: Midline, Perineal Extension/lac, Vaginal Extension/lac, 2nd degree Medications given after delivery: IV Pitocin Complications: None 10/04/17 1150 <Electronically signed by Silvano Mccurdy MD> Date Silvano Mccurdy MD CC: No Primary Care Physician; Silvano Mccurdy MD Signed PROTEIN+CREATININE Collected: Status: F Source: [place] NIELSEN,URINE 10/04/2017 3:00 AM [facility] REPOSITORY TYPE CODE TESTS RESULT OUT OF RANGE REFERENCE UNITS LAB L501.1200 NO RANGE EST. mg/dL Normal UR CREAT 74.90 LAB L501.1930 <11.9 mg/dL High 27.5 PROTEIN,UR.R AN. LAB L501.1940 0-200 mg/g CRE High PROT:CRE 367 RATIO Performed By: #### L501.0900 #### [facility] [address] [place], [place], [id number] CBC-COMPLETE BLOOD CNT Collected: 10/04/2017 Status: F Source: [place] NO DIFF 1:25 AM [facility] REPOSITORY TYPE CODE TESTS RESULT OUT OF RANGE REFERENCE UNITS LAB L100.1000 4.4-11.0 K/mm3 High WBC 17.3 LAB L100.1200 4.2-5.4 M/mm3 Normal RBC 4.94 LAB L100.1300 12.0-15.0 g/dl Normal HGB 15.0 LAB L100.1400 37-47 % Normal HCT 42.9 LAB L100.1500 81-99 fL Normal MCV 86.8 LAB L100.1600 27.0-32.0 pg Normal MCH 30.4 LAB L100.1700 32-36 g/gl Normal MCHC 35.0 LAB L100.1810 11.6-14.6 % Normal RDW CV 13.4 LAB L100.1820 35.1-43.9 fl Normal RDW SD 41.4 LAB L100.1900 150-450 K/mm3 Normal PLT 205 LAB L100.2000 6.2-12.0 fl High MPV 12.2 Performed By: #### L100.0500 #### [facility] [address] [place], [place], [address] PROTHROMBIN TIME W/INR Collected: 10/04/2017 Status: F Source: [place] 1:25 AM [facility] REPOSITORY TYPE CODE TESTS RESULT OUT OF RANGE REFERENCE UNITS LAB L300.4150 11.7-14.9 SECONDS Normal PROTIME 11.9 LAB L300.4200 Normal INR 0.9 Performed By: #### L300.3900, L300.4310 #### [facility] [address] [place], [address] PARTIAL THROMBOPLAST Collected: 10/04/2017 Status: F Source: [place] TIME 1:25 AM [facility] REPOSITORY TYPE CODE TESTS RESULT OUT OF RANGE REFERENCE UNITS LAB L300.4310 24.1-36.2 Seconds Normal PTT 28.8 Performed By: #### L300.3900, L300.4310 #### [facility] [address] [place], [place], [address] SERUM CREATININE AND Collected: 10/04/2017 Status: F Source: [place] GFR 1:25 AM [facility] REPOSITORY TYPE CODE TESTS RESULT OUT OF RANGE REFERENCE UNITS LAB L501.1100 0.55-1.02 mg/dL Normal 0.74 CREAT,SERUM Result Comment: The validity of the calculated GFR AND GFRAA in patients over 70 years has not been determined. Clinical correlation is essential. LAB L501.1110 >60 mL/min Normal EST GFR 95 Result Comment: Non- GFR Calc LAB L501.1115 >60 mL/min Normal EST GFR - AA 115 Result Comment: GFR Calc LAB L501.1255 ml/min Normal Estimated CRCL 84.72 Performed By: #### L501.1105, L501.1400, L501.4100, L501.4405 #### [facility] [address] [place], [address] URIC ACID Collected: 10/04/2017 Status: F Source: [place] 1:25 AM [facility] REPOSITORY TYPE CODE TESTS RESULT OUT OF RANGE REFERENCE UNITS LAB L501.1400 2.6-6.0 mg/dL Normal URIC 3.9 Result Comment: The drugs N-Acetylcysteine and Metamizole may falsely depress this assay. Performed By: #### L501.1105, L501.1400, L501.4100, L501.4405 #### [facility] [address] [place], [address] AST(SGOT) Collected: 10/04/2017 Status: F Source: [place] 1:25 AM [facility] REPOSITORY TYPE CODE TESTS RESULT OUT OF RANGE REFERENCE UNITS LAB L501.4100 15-37 U/L Normal AST 29 Performed By: #### L501.1105, L501.1400, L501.4100, L501.4405 #### [facility] [address] [place], [address] ALANINE AMINOTRANSFERAS Collected: 10/04/2017 Status: F Source: [place] (SGPT) 1:25 AM [facility] REPOSITORY TYPE CODE TESTS RESULT OUT OF RANGE REFERENCE UNITS LAB L501.4405 13-56 U/L Normal ALT 40 Performed By: #### L501.1105, L501.1400, L501.4100, L501.4405 #### [facility] [address] [place], [address] TYPE AND SCREEN Collected: 10/04/2017 Status: F Source: [place] 1:25 AM [facility] REPOSITORY Order Comment: Reason for Type AND Screen/Red Cells: ROUTINE TYPE CODE TESTS RESULT OUT OF RANGE REFERENCE UNITS LAB B10.0800 A Normal BLOOD TYPE GEL POSITIVE LAB B100.4000 Normal Antibody NEGATIVE Screen Performed By: #### B101.7450 #### [facility] [address] [place], [address] PROGRESS NOTE Observed: 09/12/2017 Status: COMPLETED Source: [place] 8:30 AM [facility] [place] REPOSITORY [facility] MATERNAL- MEDICINE CONSULT Referring/Requesting Provider: Rylee Serrano MD PCP: [facility], MD Faby INDICATION FOR CONSULT: suspected IUGR HISTORY OF PRESENT ILLNESS: Patient is a 36 y.o. at 37w0d who presents for consultation regarding suspected IUGR. She reports a certain LMP. Patient's last menstrual period was 12/27/2016. SHe had a first trimester US at 11 weeks 3 days with an ELIE of 09/26/17 (within 7 days from LMP calculated ELIE). She denies medical complications. No complications. No tobacco use nor other toxic exposure. OB History: History reviewed. No pertinent past medical history. History reviewed. No pertinent surgical history. PERTINENT FAMILY HISTORY: Family History Problem Relation Age of Onset Diabetes Mellitus II Maternal Grandmother Heart Disease Maternal Grandmother High Blood Pressure Maternal Grandmother Cancer Maternal Grandfather colon Cancer Paternal Grandmother lung Cancer Paternal Grandfather lung MEDS: Outpatient Prescriptions Marked as Taking for the 09/12/17 encounter (Office Visit) with Kinga Merrill, Medication Sig Dispense Refill [id number] ( VITAMINS PO) Take by mouth daily [place]-3 Fatty Acids (EQL FISH OIL PO) Take by mouth daily ALLERGY: Allergies Allergen Reactions Amoxicillin Nausea And Vomiting REVIEW OF SYSTEMS: As mentioned above and in Subjective, all other Review of Systems reviewed and negative. PHYSICAL EXAM: VITAL SIGNS: BP 126/72 Ht 157.5 cm Wt 70.9 kg (156 lb 4.8 oz) LMP 12/27/2016 BMI 28.58 kg/m General Appearance: Alert, appropriate appearance for age. No acute distress IMAGING: See report. IMPRESSION AND RECOMMENDATIONS:: Andrae is a 36 y.o. 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 With the combination of maternal age and short femur on ultrasound the risk of this baby having trisomy 21 is 1 in 130 (< 1%). Andrae and Nikko declined additional genetic screening or testing. Suspected problem with growth not found 09/12/2017 Andrae confirmed her LMP as 12/27/16. Her earliest US was done 03/10/17 with CRL measuring 11 weeks 3 days. This ELIE is within 7 days of her ELIE calculated by her LMP and therefore should not be changed (ACOG Committee Opinion 700: Methods for estimating the Due Date.) Based on an ELIE Of 10/03/17, the estimated weight is at the 15%. Continue daily kick counts. Continue routine care. Family history of glaucoma 09/12/2017 Nikko Guzmán, father of the baby, was born with congenital glaucoma in jis right eye. His family maternal grandmother developed glaucoma late in life. No other family members with congenital or infantile glaucoma. No known genetic testing for Nikko. We reviewed that most cases of congenital glaucoma are sporadic, but up to 27% of cases can be familial. In those cases they can be autosomal recessive or multifactorial with variable penetrance. They declined further information for genetic testing for Nikko given the absence of other family members with congenital glaucoma. They will notify their director television of Nikko's history and will need to see the opthalmologist if any concerns arise. Continue routine care with Dr. Vergara. The total patient time of the visit was 30 minutes, of which was greater than 50% of the time was spent counseling and coordinating care. GROUP B STREP DNA Collected: 08/25/2017 Status: F Source: [place] BY PCR 2:45 PM [facility] REPOSITORY Order Comment: Source: Vaginal-Rectal TYPE CODE TESTS RESULT OUT OF RANGE REFERENCE UNITS LAB L8200.0100 Negative Normal GBS TEST Negative RESULT Performed By: #### L8200.0000 #### [facility] [address] [place], [address] Observed: 08/25/2017 Status: F Source: [place] CULTURE, GROUP B 12:00 AM [facility] STREPTOCOCCUS REPOSITORY IOANA Culture Group B Beta Streptococcus is not isolated. Performed By: #### M100.1800 #### [facility] [address] [facility] [place], [address] GLUCOSE CHALLENGE GEST Collected: 06/30/2017 Status: F Source: [place] 1H 50G 8:43 AM [facility] REPOSITORY TYPE CODE TESTS RESULT OUT OF RANGE REFERENCE UNITS LAB L501.0250 70-140 mg/dL Normal GLU GEST 77 50g 1H Performed By: #### L501.0250 #### [facility] [address] [place], [address] CBC-COMPLETE BLOOD CNT Collected: 06/30/2017 Status: F Source: [place] NO DIFF 8:43 AM [facility] REPOSITORY TYPE CODE TESTS RESULT OUT OF RANGE REFERENCE UNITS LAB L100.1000 4.4-11.0 K/mm3 Normal WBC 10.4 LAB L100.1200 4.2-5.4 M/mm3 Low RBC 4.16 LAB L100.1300 12.0-15.0 g/dl Normal HGB 12.1 LAB L100.1400 37-47 % Normal HCT 37.5 LAB L100.1500 81-99 fL Normal MCV 90.1 LAB L100.1600 27.0-32.0 pg Normal MCH 29.1 LAB L100.1700 32-36 g/gl Normal MCHC 32.3 LAB L100.1810 11.6-14.6 % Normal RDW CV 13.5 LAB L100.1820 35.1-43.9 fl High RDW SD 44.1 LAB L100.1900 150-450 K/mm3 Normal PLT 225 LAB L100.2000 6.2-12.0 fl Normal MPV 11.4 Performed By: #### L100.0500 #### [facility] [address] [place], [place], [address] ALLERGIES ALLERGIES DATE TYPE / CODE NAME / CODE REACTION SEVERITY SOURCE 02/08/2018 Drug amoxicillin/[id number] Vomiting Unknown [place] Allergy/416 3816(RXNORM) [facility]ly [facility] [id number]([facility]) Repository 09/12/2017 DRUG AMOXICILLIN [facility]/[address] [place] [address] [id number](SNOM Repository ED CT) ENCOUNTERS ENCOUNTERS ADMIT/DISCHARGE ACCOUNT ADMITTING ENCOUNTER LOCATION SOURCE NUMBER CLASS 02/15/2018/02/16/20 [id number] Ambulatory [facility] 18 [facility] ing:SDCRoom: Repository AC06 10/04/2017/10/07/19 [id number] Silvano Mccurdy Inpatient [facility] 18 Encounter [facility] ing:WPRoom: Repository [id number]: 1 09/12/2017 [id number] Ambulatory Building:[facility] Repository 09/12/2017 [id number] Ambulatory Building:[facility] Repository 08/25/2017 [id number] [facility] ing:LABSPEC Repository 06/30/2017 [id number] [facility] ing:WOBLAB Repository PAYERS PAYERS ENCOUNTER GUARANTOR PAYER SUBSCRIBER SOURCE 02/15/2018 ANDRAE Loyd Primary NIKKO R [place] [id number] GOOD Insurance:ANTHEMPolic DEMCZYKDOB: [place] Number: [id number] [facility] 14377Gpo: 330 [id number] Repository [phone] () Date:4111-07-20[address] [place] [address] 31940LW: 02/15/2018 Secondary NOT GIVENUNK Minn[place] Insurance:SELF PAY [facility] Number: Effective Repository Date:2017-11-28 10/04/2017 ANDRAE Loyd Primary NIKKO R [place] [id number] GOOD Insurance:ANTHEMPolic DEMCZYKDOB: [place] Number: [id number] [facility] 24[address]Tev: 330 [id number] Repository [phone] () Date:2836-37-78IK [address] [place] [address] 24351RM: 10/04/2017 Secondary NOT GIVENUNK [place] Insurance:SELF PAY [facility] Number: Effective Repository Date:2017-08-28 09/12/2017 [facility] RAMIREZDOB: Insurance:ANTHEMPolic [id number] Hospital y Number: 5 GOOD Repository [place], [id number], [place] [address]Jut: Date: [id number] () 09/12/2017 [facility] NIKKO GUZMÁNDOB: [facility] RAMIREZDOB: Insurance:ANTHEMPolic [id number] Hospital y Number: 5 GOOD Repository [place], [id number], [place] [address]Tvl: Date: [id number] (HP) 08/25/2017 [facility] NIKKO [id number] GOOD Insurance:ANTHEMPolic DEMCZYKDOB[place] Number: [id number] [address]Ctx: (330) [id number] Repository [phone] () Date:[id number]BQ[address] [address]HH: 08/25/2017 Secondary NOT GIVENUNK [place] Insurance:SELF PAY [facility] Number: Effective Repository Date:2017-08-25 06/30/2017 [facility] NIKKO Freeman Minnie [id number] GOOD Insurance:ANTHEMPolic DEMCZYKDOB: [place] Number: [id number] [address]Vum: (330) [id number] Repository [phone] () Date:3969-18-24ZY [address]HICXOFP[address]ID PARMAR [address]WA: 06/30/2017 Secondary NOT GIVENUNK [place] Insurance:SELF PAY [facility] Number: Effective Repository Date:2017-06-30
== END 2018-02-15 11:28 | disposition home or self-care (01) ==
LOC: SDC 05:48 → AC 05:48
PROVIDERS: Referring Provider Obstetrics & Gynecology; Visit Provider Obstetrics & Gynecology
PROC: (CPT 58661; principal; 2018-02-15 07:00)
DX: Z30.2 Encounter for sterilization (principal)
CPT/HCPCS: 58661; 36415; 81025; 85027; 85610; 85730; 86850; 86900; 88302; J7120; C1760; J2405

== ENCOUNTER → 2019-05-03 | Outpatient (CLI) | payer BC, SELFPAY ==
[2018-06-18 17:58] VITALS: BMI 23.0
[2019-05-07 13:39] LABS: HPV APTIMA, High Risk Negative (Negative)
== END | disposition home or self-care (01) ==
LOC: LABSPEC 16:57
PROVIDERS: Referring Provider Obstetrics & Gynecology; Visit Provider Obstetrics & Gynecology
DX: Z12.4 Encounter for screening for malignant neoplasm of cervix (principal)
CPT/HCPCS: 87624; 88175; G0145